=== PATIENT | male | born 1940 | race Caucasian/White ===

== ENCOUNTER 2019-03-02 23:37 | Emergency (ER) | payer OTHER ==
[~2019-03-02] VITALS: Ht 182.9 cm; Wt 82.0 kg
[2019-03-03] MEDS ORDERED: SODIUM CHLORIDE 0.9% 1,000 ML IV ONE (00:02)
[2019-03-03] MEDS ORDERED: METOCLOPRAMIDE HCL 10MG/2ML VIAL IV ONE (00:15)
[2019-03-03] MEDS ORDERED: SODIUM CHLORIDE 0.9% 1000ML BAG (SEPSIS BOLUS) IV ONE (00:30)
[2019-03-03 00:56] VITALS: BP 77/51
[2019-03-03] MEDS ORDERED: HYDROMORPHONE HCL/PF 2MG/ML CPJ IV ONE (01:00)
[2019-03-03] MEDS ORDERED: LORAZEPAM 2MG/ML CPJ ONE (01:05)
[2019-03-03] MEDS ORDERED: DEXTROSE 50% WATER 50ML VIAL IV ONE (01:05)
[2019-03-03] MEDS ORDERED: SUCCINYLCHOLINE CHLORIDE 200MG/10ML IV ONE ×2 (01:05→03:45)
[2019-03-03] MEDS ORDERED: EPINEPHRINE 0.1MG/ML (1:10,000) 10ML SYR ONE ×2 (01:05→01:29)
[2019-03-03] MEDS ORDERED: NALOXONE HCL 0.4 MG/ML 1ML VIAL ONE (01:05)
[2019-03-03] MEDS ORDERED: CALCIUM CHLORIDE 1GM/10ML SYR IV ONE (01:05)
[2019-03-03] MEDS ORDERED: SODIUM BICARBONATE 8.4% MEQ/ML 50ML VIAL IV ONE (01:05)
[2019-03-03] MEDS ORDERED: ETOMIDATE 2MG/ML 10ML VIAL IV ONE ×2 (01:05→03:45)
[2019-03-03] MEDS ORDERED: ATROPINE SULFATE 1MG/10ML SYR ONE (01:05)
[2019-03-03 01:14] LABS: BASOPHILS % 0.2 % (0.0-2.0); EOSINOPHILS % 0.2 % (0.0-5.0); HEMATOCRIT. 37.5 % (42.0-52.0); HEMOGLOBIN. 12.5 g/dL (14.0-18.0); LYMPHOCYTES % 21.4 % (20.0-50.0); MEAN CORPUSCULAR HEMOGLOBIN 31.8 pg (28.0-32.0); MEAN CORPUSCULAR VOLUME 95.6 fL (80.0-94.0); MEAN PLATELET VOLUME 10.6 fl (7.4-10.4); MONOCYTES % 7.3 % (2.0-8.0); NEUTROPHILS % 70.9 % (40.0-76.0); PLATELET 116 x1000/uL (130-400); RED BLOOD CELL COUNT 3.92 mill/uL (4.7-6.1); RED CELL DISTRIBUTION WIDTH 13.6 % (11.6-14.6)
[2019-03-03] MEDS ORDERED: NOREPINEPHRINE 4MG/250ML PMX 250 ML IV ONE ×2 (01:26→01:45)
[2019-03-03] MEDS ORDERED: PIPERACILLIN/TAZOBACTAM 3.375GM/50ML PREMIX IV ONE (01:30)
[2019-03-03] MEDS ORDERED: VANCOMYCIN 1 G PREMIX 200 ML IV NR (01:30)
[2019-03-03] MEDS ORDERED: INSULIN REGULAR (HUMULIN R) 300UNITS/3ML ONE (01:34)
[2019-03-03 01:45] LABS: CHLORIDE 100 mEq/L (98-107)
[2019-03-03] MEDS ORDERED: PIPERACILLIN/TAZ 3.375G PREMIX 50 ML IV NR (01:45)
[2019-03-03 01:55] LABS: BETA HYDROXYBUTYRATE 0.7 mMol/L (0.0-0.3)
[2019-03-03] MEDS ORDERED: PROPOFOL 10MG/ML 100ML 100 ML IV SCH (02:00)
[2019-03-03] MEDS ORDERED: INSULIN REGULAR (DRIP) 100 UNITS in SODIUM CHLORIDE 0.9% 100 ML IV NR ×2 (02:00→02:15)
[2019-03-03] MEDS ORDERED: NOREPINEPHRINE 4 MG in DEXT 5% WATER 246 ML IV ONE (02:00)
[2019-03-03] MEDS ORDERED: ATROPINE SULFATE 1MG/10ML SYR IV NR (02:00)
[2019-03-03] MEDS ORDERED: NOREPINEPHRINE 4MG/250ML PMX 250 ML IV PRN (02:00)
[2019-03-03] MEDS ORDERED: EPINEPHRINE 1 MG in SODIUM CHLORIDE 0.9% 249 ML IV STA (02:06)
[2019-03-03] MEDS ORDERED: EPINEPHRINE 1 MG in SODIUM CHLORIDE 0.9% 249 ML IV PRN (02:15)
== END 2019-03-03 02:29 | disposition expired ==
LOC: ER 23:37
DX: I21.3 ST elevation (STEMI) myocardial infarction of unspecified site (principal); I11.0 Hypertensive heart disease with heart failure; E11.10 Type 2 diabetes mellitus with ketoacidosis without coma; I50.9 Heart failure, unspecified; N17.9 Acute kidney failure, unspecified; I48.91 Unspecified atrial fibrillation; R56.9 Unspecified convulsions; D72.829 Elevated white blood cell count, unspecified; R94.5 Abnormal results of liver function studies; R45.851 Suicidal ideations; Z79.01 Long term (current) use of anticoagulants; Z91.14 Patient's other noncompliance with medication regimen
CPT/HCPCS: 31500; 36415; 71045; 80053; 82010; 82962; 83605; 83690; 83880; 84484; 85025; 87040; 92950; 93005; 96374; 96375; 99291; J0330; J0461; J1170; J1815; J2060; J2310; J2704; J3490; J7030; J7050; J7060